=== PATIENT | female | born 1945 | race Caucasian/White ===

== ENCOUNTER 2018-11-07 09:37 | Day surgery (SDC) | payer MEDICARE, BC ==
[~2018-11-07 09:37] MED LIST: Lactated Ringers 1,000 ML IV SCH; Midazolam 1 MG/ML 2 ML SDV ONE; Propofol 200 MG/20 ML SDV ONE; Sodium Chloride 0.9% 10 ML Syringe FLUSH PRN; fentaNYL 100 MCG/2 ML SDV ONE
--- NOTE | 2018-11-07 10:25 | PCM.HPR ---
H & P Addendum review - H & P Addendum Review Date of Original H & P: 10/31/18 Date Reviewed: 11/07/18 Time Reviewed: 10:25 Patient was Examined: No Changes
[2018-11-07] MEDS ORDERED: fentaNYL 100 MCG/2 ML SDV ONE (10:35)
[2018-11-07] MEDS ORDERED: Propofol 200 MG/20 ML SDV ONE ×3 (10:35→11:34)
[2018-11-07] MEDS ORDERED: Midazolam 1 MG/ML 2 ML SDV ONE (10:35)
[2018-11-07] MEDS ORDERED: Lidocaine 2% 5 ML SDV ONE (10:35)
--- NOTE | 2018-11-07 11:24 | PCM.OPNOTE ---
- General Post-Op/Procedure Note Date of Surgery/Procedure: 11/07/18 Operative Procedure(s): EGD with bx. Colonoscopy with polypectomy Findings: Antral Gastritis Sig polyp and tics Pre Op Diagnosis: Epigastric abd pain; Hx colon polyps Post-Op Diagnosis: Same Anesthesia Technique: MAC Primary Surgeon: Padilla Franklin Anesthesia Provider: Bonita Kurtz Complications: None Condition: Good
[2018-11-07 14:37] VITALS: BP 124/79
--- NOTE | 2018-11-08 10:39 | OR ---
Date of Procedure: 11/07/2018 PREOPERATIVE DIAGNOSES: 1. Epigastric abdominal pain with history of gastroesophageal reflux disease. 2. History of colon polyps. POSTOPERATIVE DIAGNOSES: 1. Mild gastritis. 2. Sigmoid colon polyp. 3. Sigmoid diverticulosis. PROCEDURES: 1. Esophagogastroduodenoscopy with biopsy. 2. Colonoscopy with polypectomy. ANESTHESIA: IV sedation. DESCRIPTION OF PROCEDURE: The patient was brought to the procedure room where she was placed on the left side and IV sedation administered. Oral bite block was placed and the upper endoscope advanced into the esophagus under direct vision without difficulty. Vocal cords were viewed and were normal. Scope was advanced to the 3rd portion of the duodenum. Duodenum and pylorus were normal. Antrum shows evidence of mild gastritis without any ulcers or erosions. I did take 2 random biopsies from here. The remaining body and fundus were normal. Retroflexion was normal. Squamocolumnar junction was normal. Distal esophageal mucosa was normal. I did not see any evidence of reflux esophagitis, but because of her symptoms, I did take 2 random biopsies from the distal esophagus. Air was removed from the stomach and the scope withdrawn through the remaining esophagus, which appears normal. The patient tolerated this portion of the procedure well. Next, colonoscopy was performed after digital rectal exam was done, which was normal. Colonoscope was inserted and advanced to the level of the cecum with some difficulty getting through a tortuous sigmoid colon with multiple large diverticula. I was able to advance to the ascending colon and again could not advance because of significant looping. Pressure on the abdomen allowed me to advance to the cecum which was confirmed by identifying the appendiceal lumen and the ileocecal valve. Prep was fair with some stool remaining throughout the colon. Most of this was irrigated and suctioned. Upon withdrawing the scope, the ascending, transverse, and descending colon were normal in appearance. Sigmoid colon has a 6 mm sessile polyp that was removed with the hot biopsy forceps. There were multiple large diverticula and the sigmoid colon was tortuous. Rectum was normal and retroflexion was normal. Air was removed and the scope withdrawn. The patient tolerated the procedure well and returned to recovery in stable condition. The patient will follow up with Domenica Nascimento next week for review of biopsies. I did not feel that she needs to undergo further colonoscopy because of her age. CURTIS NGUYEN MD /[id number]
== END 2018-11-07 12:30 | disposition home or self-care (01) ==
LOC: LL.SDS 09:37
PROVIDERS: ATTEND Surgery
DX: K29.70 Gastritis, unspecified, without bleeding (principal); K57.30 Diverticulosis of large intestine without perforation or abscess without bleeding; D12.5 Benign neoplasm of sigmoid colon; J45.909 Unspecified asthma, uncomplicated; F41.9 Anxiety disorder, unspecified; E78.5 Hyperlipidemia, unspecified; K21.9 Gastro-esophageal reflux disease without esophagitis; G47.30 Sleep apnea, unspecified; R55 Syncope and collapse; Z86.010 Personal history of colon polyps; Z79.899 Other long term (current) drug therapy; Z91.040 Latex allergy status
CPT/HCPCS: 43239; 45384; J2001; J2250; J2704; J3010; J7120; 00813

== ENCOUNTER 2024-08-30 10:15 | Inpatient (IN) | payer MEDICARE ==
[2024-08-30 10:40] LABS: BASOPHILS ABSOLUTE AUTO 0.01 K/uL (0.00-0.20); BASOPHILS PERCENT AUTO 0.1 % (0.0-2.0); EOSINOPHILS ABSOLUTE AUTO 0.49 K/uL (0.00-0.50); EOSINOPHILS PERCENT AUTO 5.2 % (0.0-5.0); HEMOGLOBIN 11.4 g/dL (11.7-15.5); IMMATURE GRAN ABSOLUTE AUTO 0.02 10^3/uL (0.00-0.04); IMMATURE GRAN PERCENT AUTO 0.2 % (0.0-0.4); LYMPHOCYTES ABSOLUTE AUTO 2.16 K/uL (0.50-3.50); LYMPHOCYTES PERCENT AUTO 23.1 % (10.0-50.0); MEAN CORPUSCULAR HEMOGLOBIN 29.5 pg (28.2-33.3); MEAN CORPUSCULAR HGB CONC 31.7 g/dL (31.7-36.0); MEAN CORPUSCULAR VOLUME 93.3 fL (84.0-98.0); MONOCYTES ABSOLUTE AUTO 1.07 K/uL (0.00-1.00); MONOCYTES PERCENT AUTO 11.5 % (2.0-14.0); NEUTROPHILS ABSOLUTE AUTO 5.59 K/uL (1.40-7.00); NEUTROPHILS PERCENT AUTO 59.9 % (45.0-80.0); PLATELET COUNT,PLT 188 K/uL (150-350); RED BLOOD CELL COUNT 3.86 M/uL (3.77-5.09); RED CELL DISTRIBUTION WIDTH 12.3 % (11.2-14.1); WHITE BLOOD CELL COUNT,WBC 9.3 K/uL (4.0-10.2)
[2024-08-30 10:46] LABS: APPEARANCE,URINE CLEAR; BILIRUBIN,URINE NEGATIVE (NEGATIVE); COLOR,URINE YELLOW; GLUCOSE,URINE NEGATIVE (NEGATIVE); KETONES,URINE NEGATIVE (NEGATIVE); LEUKOCYTE ESTERASE,URINE NEGATIVE (NEGATIVE); NITRITE,URINE NEGATIVE (NEGATIVE); OCCULT BLOOD,URINE NEGATIVE (NEGATIVE); PH,URINE 5.5 (5.0-9.0); PROTEIN,URINE 30 mg/dL (NEGATIVE); UROBILINOGEN,URINE 0.2 E.U./dL (0.2-1.0)
[2024-08-30 10:57] LABS: INR 0.9 (0.9-1.1); PROTHROMBIN TIME 9.4 SEC (9.0-11.1)
[2024-08-30 11:00] LABS: RBC,URINE 0-5 /HPF
[2024-08-30 11:01] LABS: ALBUMIN 2.9 g/dL (3.4-5.0); BILIRUBIN TOTAL 0.2 mg/dL (0.2-1.0); CARBON DIOXIDE,CO2 25.9 mmol/L (21.0-32.0); PROTEIN TOTAL,TP 6.2 g/dL (6.4-8.2)
[2024-08-30 11:01] LABS: BACTERIA,URINE FEW /HPF (NONE TO FEW); EPITHELIAL CELLS,URINE MANY /LPF; HYALINE CASTS,URINE FEW; WBC,URINE 0-5 /HPF
[2024-08-30 11:07] LABS: ANION GAP 15.7 meq/L (7-15); EST CRCL DRUG DOSING (CG) 9.09 mL/min
[2024-08-30 11:08] LABS: CREATININE 4.8 mg/dL (0.51-1.17); POTASSIUM,K 5.6 mmol/L (3.5-5.1)
[2024-08-30] MEDS ORDERED: Sodium Chloride 0.9% 10 ML Syringe FLUSH PRN ×2 (11:44→19:46)
[2024-08-30] MEDS: Lactated Ringers 1,000 ML IV ONE (13:02)
[2024-08-30] MEDS: Lactated Ringers 1,000 ML IV SCH (14:00)
[2024-08-30 14:58] LABS: CALCIUM 8.1 mg/dL (8.5-10.1); CARBON DIOXIDE,CO2 24.2 mmol/L (21.0-32.0); EST CRCL DRUG DOSING (CG) 9.17 mL/min
[2024-08-30 15:01] LABS: ANION GAP 17.5 meq/L (7-15); CREATININE 4.76 mg/dL (0.51-1.17); POTASSIUM,K 5.7 mmol/L (3.5-5.1)
[2024-08-30] MEDS: Calcium Gluconate 10% 1 GM/10 ML SDV IVPUSH ONE ×2 (15:13→16:17)
[2024-08-30] MEDS ORDERED: Formoterol/Mometasone 100-5 MCG 8.8 GM Inhaler INH PRN (19:34)
[2024-08-30] MEDS ORDERED: Polyvinyl Alcohol 1.4% Ophth Soln 15 ML Bottle EYEBOTH PRN (19:34)
[2024-08-30] MEDS ORDERED: Albuterol 6.7 GM Inhaler INH PRN (19:34)
[2024-08-30] MEDS ORDERED: Albuterol/Ipratropium 3.0-0.5 MG/3 ML Neb Soln NEB PRN (19:34)
[2024-08-30] MEDS ORDERED: Fluticasone NASAL Spray 16 GM Bottle NASBOTH PRN (19:34)
[2024-08-30] MEDS ORDERED: Loratadine 10 MG Tab PO PRN (19:34)
[2024-08-30] MEDS ORDERED: Non-Formulary Medication 1 Each (Alendronate [Fosamax] 35 MG Tablet) PO SCH (19:45)
[2024-08-30] MEDS ORDERED: Aspirin 81 MG Tab.EC PO SCH (20:00)
[2024-08-30] MEDS ORDERED: Dextrose 10% in Water 500 ML IV SCH (20:00)
[2024-08-30] MEDS ORDERED: QUEtiapine 25 MG Tab PO SCH (20:00)
[2024-08-30] MEDS ORDERED: Gabapentin 300 MG Cap PO SCH (20:00)
[2024-08-30] MEDS: 50% Dextrose in Water 50 ML Syringe IV ONE (20:09)
[2024-08-30] MEDS: Insulin Regular, Human 100 Units/ML 3 ML Vial IVPUSH ONE (20:12)
[2024-08-30] MEDS: Calcium Gluconate 10% 1 GM/10 ML SDV IV ONE (20:16)
[2024-08-30] MEDS: Dextrose 5%-0.9% NaCl 1,000 ML IV SCH (20:30)
[2024-08-30 21:07] VITALS: BP 133/68; PULSE 73
[2024-08-31] MEDS ORDERED: Multivitamin Tab PO SCH (08:00)
[2024-08-31] MEDS ORDERED: Non-Formulary Medication 1 Each (Aripiprazole 2 MG Tablet) PO SCH (08:00)
[2024-08-31] MEDS ORDERED: Pantoprazole 40 MG Tab.CR PO SCH (08:00)
[2024-08-31] MEDS ORDERED: Venlafaxine 75 MG Cap.ER PO SCH (08:00)
[2024-08-31] MEDS ORDERED: Psyllium Husk Powder Sugar Free 5.85 GM Packet PO SCH (08:00)
[2024-08-31] MEDS ORDERED: Non-Formulary Medication 1 Each PO SCH (08:00)
[2024-08-31] MEDS ORDERED: Metoprolol Succinate 50 MG Tab.ER PO SCH (08:00)
== END 2024-08-30 21:55 | DRG 641 ==
LOC: LL.ED 10:15 → SUPCPDRO 10:15 → LL.MS 12:45
PROVIDERS: ADMIT Physician Assistant; ATTEND Physician Assistant
DX: E87.5 Hyperkalemia (principal); N17.9 Acute kidney failure, unspecified; E78.00 Pure hypercholesterolemia, unspecified; J45.909 Unspecified asthma, uncomplicated; K21.9 Gastro-esophageal reflux disease without esophagitis; G47.30 Sleep apnea, unspecified; G43.909 Migraine, unspecified, not intractable, without status migrainosus; E11.40 Type 2 diabetes mellitus with diabetic neuropathy, unspecified; F41.9 Anxiety disorder, unspecified; Z96.653 Presence of artificial knee joint, bilateral; F15.90 Other stimulant use, unspecified, uncomplicated; Z91.040 Latex allergy status; Z79.51 Long term (current) use of inhaled steroids; Z79.82 Long term (current) use of aspirin; Z79.84 Long term (current) use of oral hypoglycemic drugs; Z86.19 Personal history of other infectious and parasitic diseases; Z90.49 Acquired absence of other specified parts of digestive tract; Z90.710 Acquired absence of both cervix and uterus; Z98.890 Other specified postprocedural states; Z79.899 Other long term (current) drug therapy; Z79.02 Long term (current) use of antithrombotics/antiplatelets
CPT/HCPCS: 36415; 70450; 71045; 74176; 80048; 80053; 81001; 82140; 82947; 83605; 83880; 84132; 85025; 85610; 93005; 93010; 99284; 99285; J0612; J1815-GY; J7042; J7120

== ENCOUNTER 2025-04-29 08:50 | Emergency (ER) | payer MEDICARE ==
[2025-04-29 09:49] VITALS: BP 137/81; PULSE 67
[2025-04-29] MEDS: Lidocaine 2% with EPINEPHrine 1:100,000 20 ML MDV INJECT ONE (10:05)
== END 2025-04-29 10:42 | disposition home or self-care (01) ==
LOC: LL.ED 08:50
DX: S01.81XA Laceration without foreign body of other part of head, initial encounter (principal); E78.00 Pure hypercholesterolemia, unspecified; K21.9 Gastro-esophageal reflux disease without esophagitis; Z79.899 Other long term (current) drug therapy; Z79.82 Long term (current) use of aspirin; Z91.040 Latex allergy status; Z90.49 Acquired absence of other specified parts of digestive tract; Z90.710 Acquired absence of both cervix and uterus; W01.198A Fall on same level from slipping, tripping and stumbling with subsequent striking against other object, initial encounter
CPT/HCPCS: 12013; 70450; 71045; 99284; A9270-GY; J2004